=== PATIENT | female | born 1995 | race Caucasian/White ===

== ENCOUNTER 2018-12-05 20:34 | Emergency (ER) | payer MEDICAID ==
[~2018-12-05] VITALS: Ht 165.1 cm; Wt 97.5 kg
[2018-12-05 20:53] VITALS: Ht 165.1 cm; Wt 97.5 kg
[2018-12-05 21:54] LABS: PLATELET COUNT 231 x10^3mcL (130-400); RED CELL DISTRIBUTION WIDTH 13.9 % (11.5-14.5)
[2018-12-05 22:02] LABS: CALCIUM 9.2 mg/dL (8.5-10.1); CARBON DIOXIDE 25.4 mmol/L (21-32); CHLORIDE SERUM 103 mmol/L (98-107); CREATININE SERUM 0.5 mg/dL (0.6-1.0); GFR1 > 60 mL/min; GLUCOSE SERUM 101 mg/dL (74-106); POTASSIUM SERUM 3.9 mmol/L (3.5-5.1); SODIUM SERUM 138 mmol/L (136-145)
[2018-12-05 22:06] LABS: LACTIC DEHYDROGENASE (LDH) 129 U/L (100-190); MAGNESIUM 1.9 mg/dL (1.8-2.4)
[2018-12-05 22:29] LABS: microscopic required? NO
[2018-12-05 22:30] LABS: MONOCYTE 3 % (0-7); SEGMENTED NEUTROPHILS 69 % (37-75)
[2018-12-05 22:31] LABS: BAND NEUTROPHIL 2 % (0-10); rbc morphology (normal/abnorm) NORMAL (NORMAL)
[2018-12-05 22:55] LABS: UA SPECIFIC GRAVITY 1.025 (1.005-1.035); urine erythrocyte NEGATIVE (NEGATIVE)
[2018-12-06 00:30] VITALS: BP 139/85
== END 2018-12-06 00:30 | disposition home or self-care (01) ==
LOC: ED 20:34
PROVIDERS: Emergency Medicine
DX: R51 Headache (principal); I10 Essential (primary) hypertension

== ENCOUNTER 2020-03-21 21:12 | Emergency (ER) | payer MEDICAID, SELFPAY ==
[~2020-03-21] VITALS: Ht 165.1 cm; Wt 90.7 kg
[2020-03-21 21:13] VITALS: Ht 165.1 cm; Wt 90.7 kg
[2020-03-21 22:07] VITALS: BP 133/71
== END 2020-03-21 22:07 | disposition home or self-care (01) ==
LOC: ED 21:12
DX: B34.9 Viral infection, unspecified (principal); Z20.828 Contact with and (suspected) exposure to other viral communicable diseases
CPT/HCPCS: U0003